=== PATIENT | female | born 1945 | race Caucasian/White ===

== ENCOUNTER 2022-01-17 19:07 | Emergency (ER) | payer MEDICARE ==
[2022-01-17] MEDS ORDERED: Sodium Chloride 0.9% 10 ML Syringe FLUSH PRN (19:28)
[2022-01-17] MEDS ORDERED: Sodium Chloride 0.9% 1,000 ML IV SCH ×2 (19:30→22:45)
[2022-01-17 21:03] LABS: ESTIMATED GFR 21 mL/min (>60)
[2022-01-17 21:42] LABS: CORONAVIRUS COVID-19 NAA POSITIVE (NEGATIVE)
[2022-01-18 07:30] LABS: ESTIMATED GFR 27 mL/min (>60)
== END 2022-01-18 09:19 | disposition home or self-care (01) ==
LOC: JD.ED 19:07
DX: U07.1 COVID-19 (principal); E86.0 Dehydration; N28.9 Disorder of kidney and ureter, unspecified
CPT/HCPCS: 0241U; 36415; 71045; 80048; 80053; 85025; 96360; 96361; 99284; J3490; J7030